=== PATIENT | male | born 1970 | race Caucasian/White ===

== ENCOUNTER 2018-04-21 16:39 | Emergency (ER) | payer SELFPAY ==
[~2018-04-21] VITALS: Ht 170.2 cm; Wt 97.6 kg
[2018-04-21 16:41] VITALS: BP 112/70; PULSE 64; RESP 19; Ht 170.2 cm; Wt 97.6 kg
== END 2018-04-21 18:52 | disposition left against medical advice (07) ==
LOC: E/R 16:39
DX: Z53.21 Procedure and treatment not carried out due to patient leaving prior to being seen by health care provider (principal)
CPT/HCPCS: 93005

== ENCOUNTER 2018-12-04 17:44 | Emergency (ER) | payer SELFPAY ==
[~2018-12-04] VITALS: Ht 170.2 cm; Wt 75.4 kg
[~2018-12-04 17:44] MED LIST: IBUP-1542 PO
[2018-12-04 17:51] VITALS: Ht 170.2 cm; Wt 75.4 kg
[2018-12-04 20:21] VITALS: BP 139/79; PULSE 78; RESP 18
== END 2018-12-04 20:22 | disposition home or self-care (01) ==
LOC: FTE 17:44
DX: N50.811 Right testicular pain (principal); N50.812 Left testicular pain
CPT/HCPCS: 76870